=== PATIENT | female | born 1990 | race Caucasian/White ===

== ENCOUNTER 2016-09-04 09:46 | Day surgery (SDC) | payer MEDICAID, OTHER ==
[~2016-09-04] VITALS: Ht 162.6 cm; Wt 51.4 kg
[2016-09-04] VITALS (8 sets, daily range): BP systolic 87–148; BP diastolic 43–72; PULSE 72–108; RESP 18–22; Ht 162.6 cm; Wt 51.4 kg
[2016-09-04] MEDS ORDERED: LIDOCAINE 1% (MDV) 20 ML INJ ONE (17:56)
[2016-09-04] MEDS ORDERED: MIDAZOLAM 1 MG/ML 2 ML INJ ONE (17:56)
[2016-09-04] MEDS ORDERED: PROPOFOL 20 ML ONE (17:56)
[2016-09-04] MEDS ORDERED: PHENYLephrine (100 MCG/ML) 5ML SYG ONE (18:02)
[2016-09-04] MEDS ORDERED: DEXAMETHASONE 4 MG/ML 1 ML INJ ONE (18:08)
[2016-09-04] MEDS ORDERED: ONDANSETRON 4 MG INJ ONE ×2 (18:08→19:03)
[2016-09-04] MEDS ORDERED: BUPIVACAINE 0.25% (MPF) 30 ML INJ ONE (18:09)
[2016-09-04] MEDS ORDERED: FENTAnyl 50 MCG/ML VIAL ONE (18:19)
--- NOTE | 2016-09-04 18:47 | HPN ---
Date/Time of Note Date/Time of Note DATE: 09/04/16 TIME: 18:46 Interval H&P Admission Note Pt. seen H&P reviewed: No system changes REGAN DURHAM MD Sep 04, 2016 18:47
--- NOTE | 2016-09-04 18:48 | OPR ---
Date/Time of Note Date/Time of Note DATE: 09/04/16 TIME: 18:47 Operative Report Preoperative Diagnosis right wrist dorsal ganglion cyst Postoperative Diagnosis same Operation/Procedure Performed arthrotomy capsulotomy excision dorsal ganglion cyst right wrist Surgeon: REGAN DURHAM MD Anesthesia: MAC Estimated Blood Loss: 0 - 10 ml's Complications: None REGAN DURHAM MD Sep 04, 2016 18:48
[2016-09-04] MEDS ORDERED: MEPERIDINE 25 MG INJ ONE (19:03)
[2016-09-04] MEDS ORDERED: HYDROmorphONE (0.2 MG/ML) 10ML SYG IV ONE (19:03)
[2016-09-04] MEDS ORDERED: MEPERIDINE 25 MG INJ IV PRN (19:30)
[2016-09-04] MEDS ORDERED: ONDANSETRON 4 MG INJ IV PRN (19:30)
[2016-09-04] MEDS ORDERED: HYDROmorphONE (0.2 MG/ML) 10ML SYG IV PRN ×3 (19:30)
--- NOTE | 2016-09-05 00:36 | OPR ---
DATE OF OPERATION: 09/04/2016 PREOPERATIVE DIAGNOSIS: Right wrist dorsal ganglion cyst. POSTOPERATIVE DIAGNOSIS: Right wrist dorsal ganglion cyst. OPERATION PERFORMED: Right wrist dorsal ganglion cyst excision, dorsal wrist capsulotomy, and arthrotomy. SURGEON: Regan Coleman MD MEDICAL LEADER: Staff. DIRECTOR OF MIDWIFERY/STAFF MIDWIFE: ANESTHESIA TECHNIQUE: Sedation by the anesthesiologist, local anesthetic by the surgeon. SURGICAL PAUSE: I examined the patient in the preop holding area. I ervin in the surgical incision. I showed the drawn surgical incision to the patient. I confirmed the operative procedure and plan with the patient awake. INFORMED CONSENT: At the time I scheduled the operative procedure, I discussed with the patient the risks and hazards of surgery, mentioning the operative mortality, wound infection, nerve injury, good result, bad result, potential complications. At the end of that conversation, the patient signed a note documenting the informed consent conversation. DESCRIPTION OF PROCEDURE: The patient was taken to surgery, anesthetized as above, sterile prep and drape performed. A transverse incision was made over the dorsum of the wrist, the wrist evacuated. The extensor tendons of the 3rd and 4th dorsal compartments were identified and retracted in the opposing directions. With the cutting cautery, we excised a portion of the dorsal wrist capsule. Tourniquet was deflated. Hemostasis was obtained with cautery. When the field was dry, the tourniquet was reinflated. The wound was irrigated and skin closed with interrupted Vicryl Rapide suture. The operative procedure took a half-hour. The patient awake in recovery. DISCHARGE MEDICATIONS: Hydrocodone and acetaminophen, and Keflex. FOLLOWUP: Will be in our office in 1 week. Dictated By: REGAN MATUTE/EWELINA Conf#: [id number] DID#: [id number]
== END 2016-09-04 19:54 | disposition home or self-care (01) ==
LOC: SDS 09:46
PROVIDERS: ATTEND Orthopaedic Surgery Hand Surgery
DX: M67.431 Ganglion, right wrist (principal)
CPT/HCPCS: 25111; 88304; J1100; J1170; J2175; J2250; J2405; J3010; Z7512; Z7610; J2370